=== PATIENT | female | born 1975 | race Asian ===

== ENCOUNTER 2019-06-01 | Emergency (ER) | payer BC ==
[~2019-06-01] VITALS: Ht 162.6 cm; Wt 63.5 kg
[2019-06-01 00:06] VITALS: Ht 162.6 cm; Wt 63.5 kg
[2019-06-01 04:05] VITALS: BP 99/66
== END 2019-06-01 04:10 | disposition home or self-care (01) ==
LOC: ED
DX: S29.011A Strain of muscle and tendon of front wall of thorax, initial encounter (principal); S09.8XXA Other specified injuries of head, initial encounter; S29.9XXA Unspecified injury of thorax, initial encounter; V49.9XXA Car occupant (driver) (passenger) injured in unspecified traffic accident, initial encounter; Y93.I9 Activity, other involving external motion; Y92.413 State road as the place of occurrence of the external cause; Y99.8 Other external cause status